=== PATIENT | female | born 1995 | race Caucasian/White ===

== ENCOUNTER 2018-03-10 17:37 | Emergency (ER) | payer BC ==
[2018-03-10 19:32] VITALS: BP 126/75
--- NOTE | 2018-03-10 20:26 | UC ---
Throat Pain/Nasal Lonnie HPI - HPI Summary HPI Summary: per [place] customs and border officer: "c/o enlarged tonsils since early this week. pt denies any pain or any other sx and was not going to get checked but they have not lessoned in size all week. Taking ibuprofen for inflammation. -has no pain in throat at all. has had strep and is certain that it is not strep. no exudate. denies swollen glands. -no dyspnea or dysphagia. notes that she may have been snoring the past week but feels absolutely fine. denies - History of Current Complaint Chief Complaint: UCGeneralIllness Stated Complaint: ORAL COMPLAINT ([place]ANDS) Time Seen by Provider: 03/10/18 19:24 Hx Last Menstrual Period: 02/16/18 Pain Intensity: 0 - Allergies/Home Medications Allergies/Adverse Reactions: Allergies Allergy/AdvReac Type Severity Reaction Status Date / Time No Known Allergies Allergy Verified 03/10/18 19:32 PMH/Surg Hx/FS Hx/Imm Hx Previously Healthy: Yes - Surgical History Surgical History: None - Social History Alcohol Use: Weekly Substance Use Type: None Smoking Status (MU): Never Smoked Tobacco Review of Systems All Other Systems Reviewed And Are Negative: Yes Constitutional: Positive: Negative Skin: Positive: Negative Eyes: Positive: Negative ENT: Positive: Other - enlarged tonsils. Respiratory: Positive: Negative Cardiovascular: Positive: Negative Gastrointestinal: Positive: Negative Genitourinary: Positive: Negative Motor: Positive: Negative Neurovascular: Positive: Negative Musculoskeletal: Positive: Negative Neurological: Positive: Negative Psychological: Positive: Negative Is Patient Immunocompromised?: No Physical Exam Triage Information Reviewed: Yes Appearance: Well-Appearing, No Pain Distress, Well-Nourished - very pleasant, smiling. Vital Signs: Initial Vital Signs Temp 99.1 F 03/10/18 19:27 Pulse 99 03/10/18 19:27 Resp 18 03/10/18 19:27 BP 126/75 03/10/18 19:27 Pulse Ox 97 03/10/18 19:27 Vital Signs Reviewed: Yes Eye Exam: Normal ENT: Positive: Pharynx normal, TMs normal, Uvula midline, Other - b/l tonsils enlarged, not kissing. no exudate. no abscess posteriorly. no "hot potato voice ".. Negative: Sinus tenderness Dental Exam: Normal Neck exam: Normal Neck: Positive: Supple, Nontender, No Lymphadenopathy Respiratory Exam: Normal Respiratory: Positive: Lungs clear, Normal breath sounds, No respiratory distress, No accessory muscle use. Negative: Crackles, Rhonchi, Stridor, Wheezing Cardiovascular Exam: Normal Cardiovascular: Positive: RRR, No Murmur, Pulses Normal Abdomen Description: Positive: Nontender, Soft Musculoskeletal Exam: Normal Neurological Exam: Normal Psychological Exam: Normal Skin Exam: Normal Throat Pain/Nasal Course/Dx - Course Course Of Treatment: Viral tonsillitis. [employer] e/o bactreial infection. -NSAIDs and medrol dose pack. avoid ETOH w/ prednisone. We discussed risks of prednisone including but not limited to anxiety, agitation, insomnia, GI upset, elevated blood pressures and blood sugar readings, adrenal crisis and avascular necrosis of the hip. -going to [place] to visit for Thanksgiving. recommend f/u at there in 3-4 days. should be seen sooner if sx increase or worsen. - Differential Dx/Diagnosis Differential Diagnosis/HQI/PQRI: Peritonsillar Abscess, Pharyngitis, Tonsillitis , URI Provider Diagnoses: Tonsillitis Discharge - Sign-Out/Discharge Documenting (check all that apply): Patient Departure All imaging exams completed and their final reports reviewed: No Studies - Discharge Plan Condition: Stable Disposition: HOME Prescriptions: methylPREDNISolone [Medrol Dosepak 4 MG*] 4 mg PO DAILY #1 tylor Patient Education Materials: Tonsillitis (ED) Referrals: No Primary Care Phys,NOPCP [Primary Care Provider] - Additional Instructions: Follow up at [facility] or with your PCP in 3-4 days. sooner if symptoms worsen - Billing Disposition and Condition Condition: STABLE Disposition: Home
== END 2018-03-10 20:35 | disposition home or self-care (01) ==
LOC: UCCORT 17:37
DX: J03.90 Acute tonsillitis, unspecified (principal)
CPT/HCPCS: 99202; G0463